=== PATIENT | female | born 1985 | race Caucasian/White ===

== ENCOUNTER 2017-11-15 11:07 | Emergency (ER) | payer OTHER ==
[~2017-11-15] VITALS: Ht 149.9 cm; Wt 62.9 kg
[2017-11-15 11:21] VITALS: TEMP 36.7; Ht 149.9 cm; Wt 62.9 kg
[2017-11-15 12:33] LABS: BASO % 1.1 %; BASO ABS # 0.06 K/uL (0-0.2); EOS % 2.1 %; EOS ABS # 0.11 K/uL (0-0.5); HEMATOCRIT 27.6 % (37-47); HEMOGLOBIN 9.4 g/dL (12.0-16.0); IG# 0.01 K/uL (0.00-0.02); LYMPH % 26.5 %; MEAN CELL VOLUME 99.6 fL (80-100); MEAN CORPUSCULAR HEMOGLOBIN 33.9 pg (25-34); MEAN CORPUSCULAR HGB CONC 34.1 g/dl (32-36); MONO % 17.6 %; MONO ABS # 0.93 K/uL (0.11-0.59); NEUT % 52.5 %; NEUT ABS # 2.78 K/uL (1.4-6.5); NUCLEATED RED BLOOD CELL ABS 0.03 K/uL (0-0); PLATELET COUNT 101 K/uL (130-400); RED CELL DISTRIBUTION WIDTH CV 17.5 % (11.5-14.5); RED CELL DISTRIBUTION WIDTH SD 64.1 fL (36.4-46.3); WHITE BLOOD COUNT 5.29 K/uL (4.8-10.8)
[2017-11-15 12:38] VITALS: O2SAT 94
[2017-11-15 12:44] LABS: INR 1.3 (0.9-1.1); PTT PATIENT 32.4 SECONDS (21.0-31.0)
[2017-11-15 13:02] LABS: ALBUMIN 2.8 gm/dl (3.4-5.0); CALCIUM 7.8 mg/dl (8.5-10.1); CREATININE 1.41 mg/dl (0.60-1.20); POTASSIUM 3.7 mmol/L (3.5-5.1)
[2017-11-15 13:10] LABS: TOTAL PROTEIN 7.5 gm/dl (6.4-8.2)
[2017-11-15] MEDS ORDERED: CHOL1000 PO (13:10)
[2017-11-15] MEDS ORDERED: LISI2.5T5 PO (13:10)
[2017-11-15] MEDS ORDERED: PROP20TA67 PO (13:10)
[2017-11-15] MEDS ORDERED: MULT-506 PO (13:10)
[2017-11-15] MEDS ORDERED: PANT40TA PO (13:10)
[2017-11-15] MEDS ORDERED: LRS10 PO (13:10)
[2017-11-15] MEDS ORDERED: THIA100T11 PO (13:11)
[2017-11-15] MEDS ORDERED: HYDROCORTISONE SOD SUCCINATE 100 MG/2 ML VIAL IV STA (14:30)
--- NOTE | 2017-11-15 15:02 | EMERGENCY ROOM VISIT NOTE ---
History First contact with patient: 11:49 Chief Complaint: ILLNESS Stated Complaint: JAUNDICE History of Present Illness The patient is a 32 year old female who presents to the Emergency Room via private vehicle accompanied by grandfather with complaints of "jaundice". The patient states that she has a history of cirrhosis of the liver, and went to her drug and alcohol group and they informed her that she should be seen because of her increasing jaundice. She states that she has been seen earlier in the week at [facility]. She states that her abdomen continues to be distended. She notes that she does follow in [place] with a property condition assessor but is unsure of their name. She notes that she continues to drink alcohol and last consumed alcohol today. Review of Systems A complete 10-point Review of Systems was discussed with the patient, with pertinent positives and negatives listed in the History of Present Illness. All remaining Review of Systems questions can be considered negative unless otherwise specified. Past Medical/Surgical History Cirrhosis of Liver Social History Smoking Status: Never Smoker Current/Historical Medications Scheduled Baclofen (Baclofen), 10 MG PO TID Cholecalciferol (Vitamin D3), 5,000 UNITS PO DAILY Lisinopril (Lisinopril), 2.5 MG PO DAILY Multivitamin (Multivitamin), 1 TAB PO DAILY Pantoprazole (Protonix), 40 MG PO DAILY Propranolol (Inderal), 20 MG PO BID Thiamine Hcl (Vitamin B-1), 100 MG PO BID Physical Exam Vital Signs Date Time Temp Pulse Resp B/P (MAP) Pulse Ox O2 Delivery O2 Flow Rate FiO2 11/15/17 19:40 65 17 96/58 97 11/15/17 18:47 69 18 95/53 95 11/15/17 17:01 76 16 95/63 97 Room Air 11/15/17 15:17 73 18 100/63 96 Room Air 11/15/17 13:46 76 16 92/55 94 Room Air 11/15/17 12:56 83 11/15/17 12:38 94 Room Air 11/15/17 12:38 74 16 87/47 94 Room Air 11/15/17 11:21 36.7 62 18 98/56 93 Room Air Physical Exam VITAL SIGNS - Vital signs and nursing notes were reviewed. Stable. GENERAL - 32-year-old female appearing her stated age who is in no acute distress. Communicates well with provider and answers questions appropriately. SKIN - Without rashes. Yellowing noted throughout. HEAD - NC/AT. EYES - Sclera icteric. EARS - No deformities of external structures noted on gross examination bilaterally. NOSE - Midline and without cyanosis. No epistaxis or purulent drainage noted. MOUTH/OROPHARYNX - Without perioral cyanosis. NECK - Neck with FROM. LUNGS - Chest wall symmetric without accessory muscle use, intercostals retractions, or central cyanosis. Normal vesicular breath sounds CTA B/L. No wheezes, rales, or rhonchi appreciated. CARDIAC - RRR with S1/S2. No murmur, rubs, or gallops appreciated. ABDOMEN - Abdominal contour distended without pulsations or visible masses. Ascites suspected. EXTREMITIES - No clubbing or peripheral cyanosis. No pretibial edema present. NEUROLOGIC - Cranial nerves II through XII grossly intact. PSYCH - A&O, and cooperates fully with examiner. Pt is very pleasant and interacts well with examiner. Medical Decision & Procedures Laboratory Results 11/15/17 12:18 Red Blood Count 2.77, Mean Corpuscular Volume 99.6, Mean Corpuscular Hemoglobin 33.9, Mean Corpuscular Hemoglobin Concent 34.1, Mean Platelet Volume 11.0, Neutrophils (%) (Auto) 52.5, Lymphocytes (%) (Auto) 26.5, Monocytes (%) (Auto) 17.6, Eosinophils (%) (Auto) 2.1, Basophils (%) (Auto) 1.1, Neutrophils # (Auto ) 2.78, Lymphocytes # (Auto) 1.40, Monocytes # (Auto) 0.93, Eosinophils # (Auto ) 0.11, Basophils # (Auto) 0.06 11/15/17 12:18 Test 11/15/17 11:40 11/15/17 12:18 11/15/17 12:26 Urine Color DK YELLOW Urine Appearance CLEAR (CLEAR) Urine pH 7.5 (4.5-7.5) Urine Specific [place] 1.005 (1.000-1.030) Urine Protein NEG (NEG) Urine Glucose (UA) NEG (NEG) Urine Ketones NEG (NEG) Urine Occult Blood NEG (NEG) Urine Nitrite NEG (NEG) Urine Bilirubin 1+ (NEG) Urine Urobilinogen NEG (NEG) Urine Leukocyte Esterase NEG (NEG) Urine Test NEG (NEG) White Blood Count 5.29 K/uL (4.8-10.8) Red Blood Count 2.77 M/uL (4.2-5.4) Hemoglobin 9.4 g/dL (12.0-16.0) Hematocrit 27.6 % (37-47) Mean Corpuscular Volume 99.6 fL (80-100) Mean Corpuscular Hemoglobin 33.9 pg (25-34) Mean Corpuscular Hemoglobin Concent 34.1 g/dl (32-36) Platelet Count 101 K/uL (130-400) Mean Platelet Volume 11.0 fL (7.4-10.4) Neutrophils (%) (Auto) 52.5 % Lymphocytes (%) (Auto) 26.5 % Monocytes (%) (Auto) 17.6 % Eosinophils (%) (Auto) 2.1 % Basophils (%) (Auto) 1.1 % Neutrophils # (Auto) 2.78 K/uL (1.4-6.5) Lymphocytes # (Auto) 1.40 K/uL (1.2-3.4) Monocytes # (Auto) 0.93 K/uL (0.11-0.59) Eosinophils # (Auto) 0.11 K/uL (0-0.5) Basophils # (Auto) 0.06 K/uL (0-0.2) RDW Standard Deviation 64.1 fL (36.4-46.3) RDW Coefficient of Variation 17.5 % (11.5-14.5) Immature Granulocyte % (Auto) 0.2 % Immature Granulocyte # (Auto) 0.01 K/uL (0.00-0.02) Nucleated RBC Absolute Count (auto) 0.03 K/uL (0-0) Nucleated Red Blood Cells % 0.5 % Prothrombin Time 13.5 SECONDS (9.0-12.0) Prothromb Time International Ratio 1.3 (0.9-1.1) Activated Partial Thromboplast Time 32.4 SECONDS (21.0-31.0) Partial Thromboplastin Ratio 1.2 Venous Blood pH 7.38 (7.36-7.41) Venous Blood Partial Pressure CO2 45 mmHg (38.0-50.0) Venous Blood Partial Pressure O2 25 mmHg Venous Blood HCO3 26 mmol/L Venous Blood Oxygen Saturation < 60.0 % Venous Blood Base Excess 0.6 mEq/L Anion Gap 8.0 mmol/L (3-11) Est Creatinine Clear Calc Drug Dose 45.8 ml/min Estimated GFR () 56.6 Estimated GFR (Non- 48.8 BUN/Creatinine Ratio 12.4 (10-20) Calcium Level 7.8 mg/dl (8.5-10.1) Magnesium Level 2.5 mg/dl (1.8-2.4) Total Bilirubin 10.2 mg/dl (0.2-1) Direct Bilirubin 8.3 mg/dl (0-0.2) Aspartate Amino Transf (AST/SGOT) 134 U/L (15-37) Alanine Aminotransferase (ALT/SGPT) 28 U/L (12-78) Alkaline Phosphatase 234 U/L (45-117) Ammonia < 10.0 umol/L (11-32) Total Protein 7.5 gm/dl (6.4-8.2) Albumin 2.8 gm/dl (3.4-5.0) Thyroid Stimulating Hormone (TSH) 3.730 uIu/ml (0.300-4.500) Ethyl Alcohol mg/dL 298.0 mg/dl (0-3) Bedside Lactic Acid Venous 1.24 mmol/L (0.90-1.70) Medications Administered Medications (Trade) Dose Ordered Sig/Jesús Route Start Time Stop Time Status Last Admin Dose Admin Hydrocortisone Sodium Succinate (Solu-Cortef IV) 100 mg NOW STAT IV 11/15/17 14:30 11/15/17 14:32 DC 11/15/17 15:17 100 MG Lorazepam (Ativan Tab) 1 mg NOW STAT SL 11/15/17 16:56 11/15/17 16:57 DC 11/15/17 17:01 1 MG Medical Decision Patient was seen and evaluated as above. She presents to us today with jaundice and abdominal distention. She has a history of liver cirrhosis. She continues to drink alcohol. After obtaining a thorough history and physical examination the above work up was performed. Patient is found to be hypotensive , but is asymptomatic with such. Alcohol was found to be elevated near 300. There is no leukocytosis. Hemoglobin low at 9.4. VBG normal. Coags reveal INR 1.3. Patient metabolic panel sodium 132, creatinine high at 1.41, calcium low 7.8, magnesium high at 2.5, total bilirubin 10.2 and direct at 8.3. Alkaline phosphatase of 234. Urine normal. Alcohol, 298. Case was discussed with the attending physician, and subsequent the hospitalist for potential admission. He recommended 100 mg of hydrocortisone IV, and potential transfer to tertiary care. I then placed a phone call to [facility] hepatology. I spoke with Dr. Umanzor and Hospitalist, Dr. Fatima. They accepted the patient for transfer. She appears stable for ground transfer. She will go via ambulance. Vital signs stable. I feel that she is better suited at a facility that offers liver care. I did relay to the patient that this is not a transfer for her to receive a liver transplant at this time, rather it is to receive further care for her ailment. She did receive ativan 1mg SL for her legs beginning to be restless that may be from alcohol withdrawal however she was reevaluated and found to be resting comfortable. She was given fentanyl for pain. She was transfered via ambulance to [facility]. Case was discussed with the attending physician I attest that I have personally reviewed the patient medication list. The patient's blood pressure was reviewed and was found to be low In the evaluation and treatment of this patient the following differential diagnoses were entertained: Liver failure, alcoholism, acute abdomen, ascites, among others. Impression Primary Impression: Liver failure Additional Impression: Anemia Departure Information Referrals Preet Estes D.O. (PCP) Patient Instructions My [facility] Problem Qualifiers
[2017-11-15] MEDS ORDERED: FENTANYL CITRATE INJ 50 MCG/1 ML 2 ML VIAL IV STA (15:12)
[2017-11-15] MEDS ORDERED: LORAZEPAM 1 MG TAB SL STA (16:56)
[2017-11-15 19:40] VITALS: BP 96/58; PULSE 65; O2SAT 97
== END 2017-11-15 19:40 | disposition short-term general hospital (02) ==
LOC: C.EDB 11:09 → C.EDC 19:40
DX: K72.90 Hepatic failure, unspecified without coma (principal); D64.9 Anemia, unspecified; K74.60 Unspecified cirrhosis of liver; F10.20 Alcohol dependence, uncomplicated; Y90.8 Blood alcohol level of 240 mg/100 ml or more; I95.9 Hypotension, unspecified

== ENCOUNTER 2018-01-09 00:30 | Inpatient (IN) | payer OTHER ==
[~2018-01-09] VITALS: Ht 149.9 cm; Wt 63.4 kg
[~2018-01-09 00:30] MED LIST: CHOL1000 PO; FOLI1TAB8 PO; LISI-1116 PO; LRS10 PO; MULT-506 PO; PANT40TA PO; PROP20TA67 PO; THIA100T11 PO
[2018-01-09] MEDS ORDERED: OXYCODONE HCL IR 5 MG TAB (IMMEDIATE RELEASE) PO STA (00:39)
--- NOTE | 2018-01-09 00:42 | EMERGENCY ROOM VISIT NOTE ---
History Report prepared by Hari: Callie Rodriguez Under the Supervision of: Dr. Kelton Lynn M.D. First contact with patient: 00:31 Chief Complaint: ABDOMINAL PAIN Stated Complaint: ABDOMINAL PAIN History of Present Illness The patient is a 32 year old female who presents to the Emergency Room with complaints of persistent abdominal pain since she was discharged on January 02, 2018. The patient was recently transferred from [facility] for liver failure to [place] November 15, 2017. The patient has a history of alcoholism. She notes that while she was in the hospital she had a TIPS procedure. She state that her abdomen has been swelling and is in pain. She notes the pain is radiating to her back. She denies any fever, though notes chills. She notes mild shortness of breath associated with chest pain. She denies taking any pain medication. She denies any recent alcohol consumption. She denies any diarrhea, though notes constipation. She notes her liver enzymes have been relatively better than normal. She denies any history of kidney failure. She notes that she was on Dilaudid and Oxycodone while in the hospital. She notes that she was given the medication every day. Source of History: patient Onset: January 02, 2018 Position: abdomen Quality: other (swelling) Timing: other (persistent) Associated Symptoms: + chills, + chest pain, + SOB, + back pain, No fevers, No diarrhea Note: She notes constipation. Review of Systems See HPI for pertinent positives & negatives. A total of 10 systems reviewed and were otherwise negative. Past Medical & Surgical Medical Problems: (1) Abdominal pain (2) Alcoholism (3) Liver cirrhosis (4) paracentesis (5) Restless leg syndrome Surgical Problems: (1) S/P TIPS (transjugular intrahepatic portosystemic shunt) Family History Diabetes mellitus FHx: cancer FHx: heart disease Hypertension Kidney disease Kidney stones Social History Smoking Status: Never Smoker Smokeless Tobacco Use: No Alcohol Use: heavy Marital Status: single Housing Status: lives with family Occupation Status: unemployed Current/Historical Medications Scheduled Folic Acid (Folvite), 1 MG PO DAILY Furosemide (Lasix), 20 MG PO DAILY Lactulose (Chronulac), 20 GM PO QID Melatonin (Melatonin), 3 MG PO HS Multivitamin (Multivitamin), 1 TAB PO DAILY Pantoprazole (Protonix), 40 MG PO DAILY Spironolactone (Aldactone), 50 MG PO DAILY Sulfa/Trimethoprim (Bactrim Ds 800MG/160MG), 1 TAB PO DAILY Thiamine Hcl (Vitamin B-1), 100 MG PO DAILY Scheduled PRN Saline (Saline Nasal [place]), 2 SPRY RICHARD UD PRN for congestion Allergies Coded Allergies: No Known Allergies (Unverified , 11/15/17) Physical Exam Vital Signs Date Time Temp Pulse Resp B/P (MAP) Pulse Ox O2 Delivery O2 Flow Rate FiO2 01/09/18 03:25 82 16 118/62 95 Room Air 01/09/18 02:33 86 18 116/76 95 Room Air 01/09/18 01:21 91 20 110/63 97 Room Air 01/09/18 00:38 101 01/09/18 00:35 37.0 92 16 114/77 98 Room Air Physical Exam GENERAL: Patient is chronically unwell-appearing and in minimal acute distress. EYES: No scleral icterus, unremarkable pupils. ENT: Mucous membranes moist, no nasal congestion. NECK: No masses appreciated, no meningismus, trachea is midline. RESPIRATORY: No dyspnea. Clear to auscultation and equal bilaterally. No wheeze , no rhonchi. CARDIOVASCULAR: Regular rate and rhythm. No murmurs, rubs, gallops appreciated. GASTROINTESTINAL: Abdomen is mildly diffuse with tenderness to palpation, worse over epigastrium, no peritonitis. Bowel sounds positive. No masses appreciated. Mildly distended abdomen with fluid wave BACK: No midline tenderness, no CVA tenderness EXTREMITIES: Normal motion all extremities, no cyanosis, no edema. NEUROLOGIC: Alert and oriented, no acute motor or sensory deficits, no focal weakness, cranial nerves grossly intact. SKIN: No rash, no diaphoresis. Jaundice. Extensive bruising from venous access sites Medical Decision & Procedures ER Provider Diagnostic Interpretation: Radiology results and stated below per my review and interpretation: CHEST XR: Single view: Left pleural effusion, Normal cardiac order. No infiltrate. No pneumothorax. Laboratory Results 01/09/18 00:45 Red Blood Count 3.05, Mean Corpuscular Volume 95.1, Mean Corpuscular Hemoglobin 32.5, Mean Corpuscular Hemoglobin Concent 34.1, Mean Platelet Volume 9.7, Neutrophils (%) (Auto) 61.6, Lymphocytes (%) (Auto) 22.9, Monocytes (%) (Auto) 12.3, Eosinophils (%) (Auto) 1.5, Basophils (%) (Auto) 1.5, Neutrophils # (Auto ) 2.97, Lymphocytes # (Auto) 1.10, Monocytes # (Auto) 0.59, Eosinophils # (Auto ) 0.07, Basophils # (Auto) 0.07 01/09/18 00:45 Test 01/09/18 00:00 01/09/18 00:45 01/09/18 01:06 Urine Color DK YELLOW Urine Appearance CLEAR (CLEAR) Urine pH 7.0 (4.5-7.5) Urine Specific [place] 1.022 (1.000-1.030) Urine Protein NEG (NEG) Urine Glucose (UA) NEG (NEG) Urine Ketones NEG (NEG) Urine Occult Blood NEG (NEG) Urine Nitrite NEG (NEG) Urine Bilirubin 2+ (NEG) Urine Urobilinogen POS (NEG) Urine Leukocyte Esterase NEG (NEG) Urine WBC (Auto) 1-5 /hpf (0-5) Urine RBC (Auto) 0-4 /hpf (0-4) Urine Hyaline Casts (Auto) 1-5 /lpf (0-5) Urine Epithelial Cells (Auto) 10-20 /lpf (0-5) Urine Bacteria (Auto) NEG (NEG) White Blood Count 4.81 K/uL (4.8-10.8) Red Blood Count 3.05 M/uL (4.2-5.4) Hemoglobin 9.9 g/dL (12.0-16.0) Hematocrit 29.0 % (37-47) Mean Corpuscular Volume 95.1 fL (80-100) Mean Corpuscular Hemoglobin 32.5 pg (25-34) Mean Corpuscular Hemoglobin Concent 34.1 g/dl (32-36) Platelet Count 122 K/uL (130-400) Mean Platelet Volume 9.7 fL (7.4-10.4) Neutrophils (%) (Auto) 61.6 % Lymphocytes (%) (Auto) 22.9 % Monocytes (%) (Auto) 12.3 % Eosinophils (%) (Auto) 1.5 % Basophils (%) (Auto) 1.5 % Neutrophils # (Auto) 2.97 K/uL (1.4-6.5) Lymphocytes # (Auto) 1.10 K/uL (1.2-3.4) Monocytes # (Auto) 0.59 K/uL (0.11-0.59) Eosinophils # (Auto) 0.07 K/uL (0-0.5) Basophils # (Auto) 0.07 K/uL (0-0.2) RDW Standard Deviation 77.7 fL (36.4-46.3) RDW Coefficient of Variation 22.6 % (11.5-14.5) Immature Granulocyte % (Auto) 0.2 % Immature Granulocyte # (Auto) 0.01 K/uL (0.00-0.02) Tear Drop Cells 1+ Ovalocytes 1+ Echinocytes 2+ Prothrombin Time 15.2 SECONDS (9.0-12.0) Prothromb Time International Ratio 1.5 (0.9-1.1) Activated Partial Thromboplast Time 35.0 SECONDS (21.0-31.0) Partial Thromboplastin Ratio 1.3 Anion Gap 7.0 mmol/L (3-11) Est Creatinine Clear Calc Drug Dose 87.8 ml/min Estimated GFR () 123.4 Estimated GFR (Non- 106.4 BUN/Creatinine Ratio 15.3 (10-20) Calcium Level 7.9 mg/dl (8.5-10.1) Total Bilirubin 6.3 mg/dl (0.2-1) Direct Bilirubin 4.6 mg/dl (0-0.2) Aspartate Amino Transf (AST/SGOT) 117 U/L (15-37) Alanine Aminotransferase (ALT/SGPT) 24 U/L (12-78) Alkaline Phosphatase 159 U/L (45-117) Troponin I < 0.015 ng/ml (0-0.045) Total Protein 7.0 gm/dl (6.4-8.2) Albumin 3.3 gm/dl (3.4-5.0) Lipase 2413 U/L (73-393) Ethyl Alcohol mg/dL 136.0 mg/dl (0-3) Laboratory results as reviewed by me. Medications Administered Medications (Trade) Dose Ordered Sig/Jesús Route Start Time Stop Time Status Last Admin Dose Admin Oxycodone HCl (Roxicodone Immediate Rel Tab) 5 mg NOW STAT PO 01/09/18 00:39 01/09/18 00:42 DC 01/09/18 00:47 5 MG Ondansetron HCl (Zofran Inj) 4 mg NOW STAT IV 01/09/18 02:06 01/09/18 02:07 DC 01/09/18 02:27 4 MG Fentanyl Citrate (Fentanyl Inj) 75 mcg NOW STAT IV 01/09/18 02:06 01/09/18 02:07 DC 01/09/18 02:27 75 MCG Sodium Chloride 1,000 ml @ 75 mls/hr [id number] STAT IV 01/09/18 02:06 01/09/18 03:52 DC 01/09/18 02:06 75 MLS/HR Dextrose (Dextrose 50% 50ML Syringe) 25 ml NOW STAT IV 01/09/18 02:17 01/09/18 02:18 DC 01/09/18 02:17 25 ML Ondansetron HCl (Zofran Inj) 4 mg Q6H PRN IV 01/09/18 03:45 02/08/18 03:44 01/09/18 05:33 4 MG Hydromorphone HCl (Dilaudid Inj) 0.5 mg Q3HWA PRN IV 01/09/18 03:45 01/23/18 03:44 01/09/18 05:33 0.5 MG ECG Per My Interpretation Indication: abdominal pain Rate (beats per minute): 92 Rhythm: normal sinus Findings: no acute ischemic change, no ectopy, other (QTC of 464.) ED Course 0033: The patient was evaluated in room B6. A complete history and physical exam was performed. 0050: I reassessed the patient at this time. Dr. Melchor is the patient's radiologist physician. I went through the paperwork she came with. Her discharge paperwork indicates that she went through three rounds of IV Dilaudid and two rounds PO Oxy IR. 0200: I reassessed the patient at this time. She is adamant that she has not consumed alcohol. She states she may have consumed alcohol, though she cannot remember. She notes that she was up last night with friends eating pizza. 0213: I spoke with Dr. Peraza, [facility] radiologist physician. We discussed the patient' s case. He knows the patient well. He notes the patient is a pathological liar and one of the worse drunks he has ever come in contact with. He states that she becomes irate and belligerent easily. Her bilirubin seems okay at the moment. Her hemoglobin was running in the 9s. He recommends further evaluation. She does not need emergent transfer to their facility. 0250: I spoke with Dr. Bernardo, [facility] hospitalist. We discussed the patient's case. The patient will be evaluated by the [facility] for further management. Medical Decision Differential: Sepsis, Infectious (UTI/Pneumonia/Meningitis/etc), Metabolic/ Electrolyte Abnormality, Cardiac, Dehydration, Anemia, Hepatic, Endocrine, Toxicologic, Neurologic, amongst other pathologies entertained. 32 yr old female arrives with epigastric pain radiating to back along with copious other complaints. She was just discharged from [facility] where she was admitted for the last 2 months secondary to liver failure due to alcoholism. She had variceal bleed followed by tips during that time. States that she was out with friends eating pizza last night, adamantly denies etoh and then slept until this afternoon. Developed abdominal pain this evening. Lipase elevated. Etoh positive. She is clearly lying about etoh use though continues to deny using alcohol. Symptoms consistent with alcoholic pancreatitis and she also is likely withdrawing from narcotics she was on heavily while at [facility]. She is somewhat manipulative and demanding at times. She was discussed with [facility] GI who know her well and feel NPO and fluids with admit here is reasonable rather than emergent transfer. No peritonitis and I do not feel that she requires CT at this time. After small dose narcotics she has no further cp complaints and HR in 80s thus I feel this is not due to PE. Medication Reconcilliation Current Medication List: was personally reviewed by me Blood Pressure Screening Patient's blood pressure: Normal blood pressure Consults Time Called: 020 Consulting Physician: Dr. Peraza, [facility] radiologist physician Returned Call: [address] Peraza, [facility] radiologist physician. We discussed the patient's case. He knows the patient well. He notes the patient is a pathological liar and one of the worse drunks he has ever come in contact with. He states that she becomes irate and belligerent easily. Her bilirubin seems okay at the moment. Her hemoglobin was running in the 9s. He recommends further evaluation. She does not need emergent transfer to their facility. Additional Consults: Time Called: 025 Consulted Physician: Dr. Bernardo [facility] hospitalist Additional Comments: I spoke with Dr. Bernardo [facility] hospitalist. We discussed the patient's case. The patient will be evaluated by the [facility] for further management. Impression Primary Impression: Alcoholic pancreatitis Additional Impressions: Alcoholism Liver failure Scribe Attestation The scribe's documentation has been prepared under my direction and personally reviewed by me in its entirety. I confirm that the note above accurately reflects all work, treatment, procedures, and medical decision making performed by me. Departure Information Dispostion Being Evaluated By Hospitalist Referrals Preet Estes D.O. (PCP) Patient Instructions My [facility] Problem Qualifiers
[2018-01-09 00:52] LABS: BASO % 1.5 %; BASO ABS # 0.07 K/uL (0-0.2); EOS % 1.5 %; EOS ABS # 0.07 K/uL (0-0.5); HEMOGLOBIN 9.9 g/dL (12.0-16.0); IG# 0.01 K/uL (0.00-0.02); LYMPH % 22.9 %; MEAN CELL VOLUME 95.1 fL (80-100); MEAN CORPUSCULAR HEMOGLOBIN 32.5 pg (25-34); MEAN CORPUSCULAR HGB CONC 34.1 g/dl (32-36); MEAN PLATELET VOLUME 9.7 fL (7.4-10.4); MONO % 12.3 %; MONO ABS # 0.59 K/uL (0.11-0.59); NEUT % 61.6 %; NEUT ABS # 2.97 K/uL (1.4-6.5); PLATELET COUNT 122 K/uL (130-400); RED CELL DISTRIBUTION WIDTH CV 22.6 % (11.5-14.5); RED CELL DISTRIBUTION WIDTH SD 77.7 fL (36.4-46.3); WHITE BLOOD COUNT 4.81 K/uL (4.8-10.8)
[2018-01-09 01:01] LABS: INR 1.5 (0.9-1.1)
[2018-01-09 01:23] LABS: ALBUMIN 3.3 gm/dl (3.4-5.0); ALKALINE PHOSPHATASE 159 U/L (45-117); ALT/SGPT 24 U/L (12-78); AST/SGOT 117 U/L (15-37); BLOOD UREA NITROGEN 11 mg/dl (7-18); CALCIUM 7.9 mg/dl (8.5-10.1); CARBON DIOXIDE 22 mmol/L (21-32); CREATININE 0.74 mg/dl (0.60-1.20); GLUCOSE 62 mg/dl (70-99); LIPASE 2413 U/L (73-393); POTASSIUM 3.7 mmol/L (3.5-5.1); SODIUM 138 mmol/L (136-145)
[2018-01-09] MEDS ORDERED: LACT10SO17 PO (02:01)
[2018-01-09] MEDS ORDERED: MELA1TAB49 PO (02:02)
[2018-01-09] MEDS ORDERED: FURO-85 PO (02:02)
[2018-01-09] MEDS ORDERED: SPIR25TA PO (02:03)
[2018-01-09] MEDS ORDERED: SALI-3 NAE (02:05)
[2018-01-09] MEDS ORDERED: SODIUM CHLORIDE 0.9% 1000ML 1,000 ML IV STA (02:06)
[2018-01-09] MEDS ORDERED: SULF800T23 PO (02:06)
[2018-01-09] MEDS ORDERED: ONDANSETRON INJ 2 MG/ML 2 ML VIAL IV STA (02:06)
[2018-01-09] MEDS ORDERED: FENTANYL CITRATE INJ 50 MCG/1 ML 2 ML VIAL IV STA (02:06)
[2018-01-09] MEDS ORDERED: DEXTROSE 50% 50 ML SYR IV STA (02:17)
[2018-01-09] MEDS ORDERED: POLYETHYLENE (MIRALAX) 17 GM PACK PO PRN (03:45)
[2018-01-09] MEDS ORDERED: ALUMINUM/MAGNESIUM/SIMETH (MAALOX MAX) 30 ML UDC PO PRN (03:45)
[2018-01-09] MEDS ORDERED: ONDANSETRON INJ 2 MG/ML 2 ML VIAL IV PRN (03:45)
[2018-01-09] MEDS ORDERED: SODIUM CHLORIDE 0.65% NA SOLN 45 ML (OCEAN) NAE PRN (03:45)
[2018-01-09] MEDS ORDERED: MAGNESIUM HYDROXIDE SUSP 30 ML UDC PO PRN (03:45)
--- NOTE | 2018-01-09 03:52 | History and Physical ---
History & Physical Date & Time of Service: Jan 09, 2018 at 03:47 Chief Complaint: Abdominal Pain Primary Care Physician: Preet Estes D.O. History of Present Illness Source: patient Shilpa is a 32 year old female with Alcoholism, and Cirrhosis s/p TIPS procedure that presented to [facility] due to worsening abdominal pain Her pain started 2 days ago. It is located throughout her abdomen and it radiates to her back. She describes it as a diffuse dull ache. She has tried heating pads and ice packs but these have not helped with the pain. She rates the pain as a 7/10 in severity. Associated symptoms include chills, abdominal swelling, jaundice, nausea, fatigue and mild shortness of breath She was discharged from [facility] last week after being admitted for bleeding esophageal varices. She received numerous blood transfusions, she had band ligation of her esophageal varices and she had a TIPS procedure done. She was in the hospital for two weeks including a stay in the ICU. 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 In the ED the patients vitals were stable. Her labs were significant for a Hgb of 9.9, plt of 122, INR of 1.5, Bili of 6.3, AST of 117, Alk phos of 159 and Lipase of 2413. She also had a blood alcohol level of 136. She received fentanyl, roxicodone, IV NS, and zofran in the ED. She adamantly denies any alcohol use since being discharged from [facility] despite having a positive blood alcohol level. She has a history of opioid drug abuse. She denies any recent drug use Past Medical/Surgical History Medical Problems: (1) Abdominal pain (2) Alcoholism (3) Anemia (4) Liver cirrhosis (5) Liver failure (6) paracentesis (7) Restless leg syndrome Surgical Problems: (1) S/P TIPS (transjugular intrahepatic portosystemic shunt) Family History Diabetes mellitus FHx: cancer FHx: heart disease Hypertension Kidney disease Kidney stones Social History Smoking Status: Never Smoker Smokeless Tobacco Use: No Marital Status: single Occupational Status: unemployed Allergies Coded Allergies: No Known Allergies (Unverified , 11/15/17) Home Medications Scheduled Folic Acid (Folvite), 1 MG PO DAILY Furosemide (Lasix), 20 MG PO DAILY Lactulose (Chronulac), 20 GM PO QID Melatonin (Melatonin), 3 MG PO HS Multivitamin (Multivitamin), 1 TAB PO DAILY Pantoprazole (Protonix), 40 MG PO DAILY Spironolactone (Aldactone), 50 MG PO DAILY Sulfa/Trimethoprim (Bactrim Ds 800MG/160MG), 1 TAB PO DAILY Thiamine Hcl (Vitamin B-1), 100 MG PO DAILY Scheduled PRN Saline (Saline Nasal [place]), 2 SPRY RICHARD UD PRN for congestion Review of Systems Constitutional: + chills, + weakness, + fatigue, No fever, No weight loss ENT: + sore throat, No hearing loss, No unusual epistaxis, No nasal symptoms, No trouble swallowing Respiratory: + shortness of breath, + dyspnea on exertion, No cough, No sputum , No wheezing, No dyspnea at rest Cardiovascular: + chest pain, No edema, No palpitations Abdomen: + pain, + nausea, No vomiting, No diarrhea, No constipation, No GI bleeding Musculoskeletal: + joint pain, + muscle pain, No calf pain Genitourinary - Female: No dysuria, No urinary frequency, No urinary urgency, No urinary incontinence Hematologic / Lymphatic: No abnormal bleeding/bruising, No clotting problems Integumentary: + color change, No rash, No itch, No bleeding Physical Exam Vital Signs Date Time Temp Pulse Resp B/P (MAP) Pulse Ox O2 Delivery O2 Flow Rate FiO2 01/09/18 02:33 86 18 116/76 95 Room Air 01/09/18 01:21 91 20 110/63 97 Room Air 01/09/18 00:38 101 01/09/18 00:35 37.0 92 16 114/77 98 Room Air General Appearance: + mild distress Head: normocephalic, atraumatic Eyes: PERRL, EOMI, + abnormal sclerae exam (jaundiced) ENT: hearing grossly normal, pharynx normal Neck: supple, no JVD, no carotid bruits, + pertinent finding (bruising of left neck where central lines was placed) Respiratory/Chest: chest non-tender, no respiratory distress, no accessory muscle use, + crackles (mild crackles at the base) Cardiovascular: regular rate, rhythm, no edema, normal peripheral pulses, + systolic murmur (3/6 systolic murmur throughout) Abdomen/GI: + tenderness (diffuse), + distended, + pertinent finding (no rebound or guarding, patient with ascites) Extremities/Musculoskelatal: normal inspection, no calf tenderness, no pedal edema, non-tender, + pertinent finding (resting tremor) Neurologic/Psych: alert, normal mood/affect, oriented x 3 Skin: + jaundice Diagnostics Laboratory Results Results Past 24 Hours Test 01/09/18 00:00 01/09/18 00:45 01/09/18 01:06 Range/Units Urine Color DK YELLOW Urine Appearance CLEAR CLEAR Urine pH 7.0 4.5-7.5 Urine Specific [place] 1.022 1.000-1.030 Urine Protein NEG NEG Urine Glucose (UA) NEG NEG Urine Ketones NEG NEG Urine Occult Blood NEG NEG Urine Nitrite NEG NEG Urine Bilirubin 2+ NEG Urine Urobilinogen POS NEG Urine Leukocyte Esterase NEG NEG Urine WBC (Auto) 1-5 0-5 /hpf Urine RBC (Auto) 0-4 0-4 /hpf Urine Hyaline Casts (Auto) 1-5 0-5 /lpf Urine Epithelial Cells (Auto) 10-20 0-5 /lpf Urine Bacteria (Auto) NEG NEG White Blood Count 4.81 4.8-10.8 K/uL Red Blood Count 3.05 4.2-5.4 M/uL Hemoglobin 9.9 12.0-16.0 g/dL Hematocrit 29.0 37-47 % Mean Corpuscular Volume 95.1 80-100 fL Mean Corpuscular Hemoglobin 32.5 25-34 pg Mean Corpuscular Hemoglobin Concent 34.1 32-36 g/dl Platelet Count 122 130-400 K/uL Mean Platelet Volume 9.7 7.4-10.4 fL Neutrophils (%) (Auto) 61.6 % Lymphocytes (%) (Auto) 22.9 % Monocytes (%) (Auto) 12.3 % Eosinophils (%) (Auto) 1.5 % Basophils (%) (Auto) 1.5 % Neutrophils # (Auto) 2.97 1.4-6.5 K/uL Lymphocytes # (Auto) 1.10 1.2-3.4 K/uL Monocytes # (Auto) 0.59 0.11-0.59 K/uL Eosinophils # (Auto) 0.07 0-0.5 K/uL Basophils # (Auto) 0.07 0-0.2 K/uL RDW Standard Deviation 77.7 36.4-46.3 fL RDW Coefficient of Variation 22.6 11.5-14.5 % Immature Granulocyte % (Auto) 0.2 % Immature Granulocyte # (Auto) 0.01 0.00-0.02 K/uL Tear Drop Cells 1+ Ovalocytes 1+ Echinocytes 2+ Prothrombin Time 15.2 9.0-12.0 SECONDS Prothromb Time International Ratio 1.5 0.9-1.1 Activated Partial Thromboplast Time 35.0 21.0-31.0 SECONDS Partial Thromboplastin Ratio 1.3 Sodium Level 138 136-145 mmol/L Potassium Level 3.7 3.5-5.1 mmol/L Chloride Level 109 98-107 mmol/L Carbon Dioxide Level 22 21-32 mmol/L Anion Gap 7.0 3-11 mmol/L Blood Urea Nitrogen 11 7-18 mg/dl Creatinine 0.74 0.60-1.20 mg/dl Est Creatinine Clear Calc Drug Dose 87.8 ml/min Estimated GFR () 123.4 Estimated GFR (Non- 106.4 BUN/Creatinine Ratio 15.3 10-20 Random Glucose 62 70-99 mg/dl Calcium Level 7.9 8.5-10.1 mg/dl Total Bilirubin 6.3 0.2-1 mg/dl Direct Bilirubin 4.6 0-0.2 mg/dl Aspartate Amino Transf (AST/SGOT) 117 15-37 U/L Alanine Aminotransferase (ALT/SGPT) 24 12-78 U/L Alkaline Phosphatase 159 45-117 U/L Troponin I < 0.015 0-0.045 ng/ml Total Protein 7.0 6.4-8.2 gm/dl Albumin 3.3 3.4-5.0 gm/dl Lipase 2413 73-393 U/L Ethyl Alcohol mg/dL 136.0 0-3 mg/dl Diagnostic Radiology CXR Single view: Left pleural effusion, Normal cardiac order. No infiltrate. No pneumothorax. Normal EKG Impression Assessment and Plan 32 year old female with a PMH of Alcoholism, and Cirrhosis w/ TIPS procedure presented with worsening abdominal pain and was diagnosed as having acute pancreatitis Acute pancreatitis secondary to alcohol intake - elevated lipase, continue to trend daily - NPO except meds - Lactated Ringers 150 mls/hr - Dilaudid 0.5mg q3hrs prn pain - Zofran PRN for nausea Cirrhosis w/ TIPS procedure - enlarged abdomen with ascites - therapeutic paracentesis in the AM - follows with GI at [facility] - Labs: elevated INR of 1.5, Platelets of 122, Bilirubin of 6.3, AST of 159 - continue folic acid, furosemide, lactulose, aldactone, Thiamine Anemia secondary to esophageal varices and cirrhosis - current hgb 9,9, reported as 9's when discharged from [facility] - continue to monitor Alcohol dependency - alcohol level of 136 - no CIWA protocol ordered due to recent prolonged hospital stay DVT - SCD - chemical anticoagulation contraindicated secondary to recent esophageal varices FULL CODE Resident Physician Supervision Note: I was present with Dr. Petersen during the history and exam. I discussed the case with the resident and agree with the findings and plan as documented in the note. Any exceptions or clarifications are listed here: 32 y/o F with ETOH cirrhosis - recent extended admission to [facility] due to variceal bleeding and encephalopathy. Had a TIPS procedure and was DCd 5 days prior. She was drinking alcohol over the past 2 days and then developed acute abdominal pain. Initial labs and exam are consistent with acute pancreatitis. Her ETOH level was 132. The liver service at [facility] were contacted prior to admission. OE Jaundiced young female in no distress S1,2 R CTAB Tender upper abdomen - no guarding No CCE AAO x 3 - no deficits P: IVF, NPO, pain control We will continue her diuretics related to cirrhosis as she will receive aggressive hydration Per [facility], the pt may abuse narcotics which should therefore be minimized - we do not have an alternative due to cirrhosis. The dangers of continued alcohol use have been made clear to this pt, although it is worth noting that she persistently denied ETOH intake despite her high blood alcohol level Documented By: Siddhartha Bernardo Resuscitation Status VTE Prophylaxis Will order VTE Prophylaxis: Yes Reason for no VTE drug order: Contraindicated
[2018-01-09 04:34] VITALS: O2SAT 96
[2018-01-09 04:49] VITALS: BP 109/72; PULSE 76; TEMP 37.5; Ht 149.9 cm; Wt 63.4 kg
[2018-01-09] MEDS ORDERED: LACTATED RINGER'S 1000ML 1,000 ML IV SCH (05:30)
[2018-01-09] MEDS: HYDROmorphone INJ 0.5 MG/0.5 ML SYR IV PRN ×2 (05:33→08:30)
--- NOTE | 2018-01-09 07:03 | DIAGNOSTIC IMAGING REPORT ---
CHEST ONE VIEW PORTABLE CLINICAL HISTORY: 32 years-old Female presenting with shortness of breath, recent TIPS procedure. TECHNIQUE: Portable upright AP view of the chest was obtained. COMPARISON: None. FINDINGS: Cardiomediastinal silhouette normal. Mildly low lung volumes with bibasilar bandlike opacities. No other focal infiltrate. No large effusion or pneumothorax. Osseous structures normal. A TIPS is in place. Ascites may be present evidenced by added density in the upper abdomen. IMPRESSION: 1. Mildly low lung volumes with bibasilar atelectasis. No pleural effusion or convincing evidence of acute cardiopulmonary disease. Electronically signed by: Ricky Rush M.D. 01/09/2018 7:01 AM Dictated Date/Time: 01/09/2018 6:49 AM
[2018-01-09 07:41] VITALS: BP 115/76; PULSE 74; TEMP 37.1; O2SAT 97
[2018-01-09] MEDS: LACTULOSE SYRUP 20 GM/30 ML UDC PO SCH ×3 (07:56→16:23)
[2018-01-09] MEDS ORDERED: MULTIVITAMIN TAB PO SCH (09:00)
[2018-01-09] MEDS ORDERED: PANTOprazole SOD 40 MG TAB PO SCH (09:00)
[2018-01-09] MEDS ORDERED: THIAMINE HCL 100 MG TAB PO SCH (09:00)
[2018-01-09] MEDS ORDERED: SPIRONOLACTONE 25 MG TAB PO SCH (09:00)
[2018-01-09] MEDS ORDERED: FUROSEMIDE 20 MG TAB PO SCH (09:00)
[2018-01-09] MEDS: ONDANSETRON INJ 2 MG/ML 2 ML VIAL IV PRN ×2 (10:05→16:11)
--- NOTE | 2018-01-09 10:45 | DIAGNOSTIC IMAGING REPORT ---
PARACENTESIS ABDOMEN W/IMAGING CLINICAL HISTORY: 32 years-old Female presenting with Ascites. COMPARISON: None. PROCEDURE: The procedure and its risks, benefits and alternatives were discussed with the patient, and written informed consent was obtained. A timeout was performed to confirm patient identity. Limited ultrasound of the abdomen was performed to determine a safe needle entry site. The right lower quadrant was prepped and draped in the usual aseptic fashion. 1% Lidocaine was used for local anesthesia. A paracentesis needle-sheath was inserted into the peritoneal space using ultrasound guidance. The needle was removed and the sheath was connected to tubing and a vacuum suction device. A total of 3.2 L of right lower ascites was aspirated. The sheath was removed, and a dressing applied. The patient tolerated the procedure well. No immediate complications. IMPRESSION: Ultrasound-guided therapeutic paracentesis with aspiration of 3.2 L of ascites. Electronically signed by: Ricky Rush M.D. 01/09/2018 10:43 AM Dictated Date/Time: 01/09/2018 10:43 AM
[2018-01-09] MEDS ORDERED: NURSING VERBAL MED ORDER ONE ×2 (12:00→12:30)
[2018-01-09] MEDS ORDERED: MoRPHine SULFATE 2 MG/ML CARP ONE (12:05)
[2018-01-09 12:06] VITALS: BP 120/73; PULSE 68; TEMP 37.2; O2SAT 97
[2018-01-09 12:38] LABS: ALBUMIN 3.6 gm/dl (3.4-5.0); CALCIUM 8.7 mg/dl (8.5-10.1); CREATININE 0.79 mg/dl (0.60-1.20); POTASSIUM 3.8 mmol/L (3.5-5.1); TOTAL PROTEIN 7.2 gm/dl (6.4-8.2)
--- NOTE | 2018-01-09 14:37 | Discharge Instructions ---
Discharge Instructions Date of Service Jan 09, 2018. Admission Reason for Admission: Abdominal Pain Discharge Discharge Diagnosis / Problem: Abdominal pain Discharge Goals Goal(s): Decrease discomfort, Improve disease control, Improve nutritional status, Learn about illness, Prevent Disease Progression Activity Recommendations Activity Limitations: per Instructions/Follow-up section . Instructions / Follow-Up Instructions / Follow-Up During this admission, you were evaluated for worsening of abdominal pain. You were found to have excessive ascites, or fluid, within your abdomen. This is related to your ongoing liver disease. We took as much of the fluid off of the abdomen as we were able. We ran some lab tests on the fluid and it was not found to be infectious. It was noted on your arrival to the ED that your blood alcohol level was elevated. We strongly urge you to abstain from alcohol considering the advanced nature of your liver disease. Continue to take all of your home medications that are prescribed to you. Continue with a clear liquid diet and advance to a low fat diet as you are able Please follow up with your [facility] GI physician as soon as possible as well as you primary care physician to discuss this visit to the hospital. If you feel you are not coping well with the stressors in your life, we urge you to contact your primary care physician who can provide resources and possibly medication to help with this. If your symptoms return or worsen, please contact your GI physician and/or present to [facility] ED. Current Hospital Diet Patient's current hospital diet: Clear Liquid Diet Discharge Diet Recommended Diet: Clear Liquid Diet, Low Fat Diet (advance from clear liquids to low fat diet as tolerated) Pending Studies Studies pending at discharge: yes List of pending studies: Culture of ascites fluid Medical Emergencies . Who to Call and When: Medical Emergencies: If at any time you feel your situation is an emergency, please call 911 immediately. . Non-Emergent Contact Non-Emergency issues call your: Primary Care Provider, Director Of Curriculum And Instruction . . "Provider Documentation" section prepared by Kaye Yeboah. .
--- NOTE | 2018-01-09 15:07 | DIAGNOSTIC IMAGING REPORT ---
DUPLEX PORTAL HEPATIC VEINS CLINICAL HISTORY: TIPS patency COMPARISON STUDY: No previous studies for comparison. FINDINGS: The TIPS is patent. Peak systolic velocity within the TIPS was slightly elevated at 217 cm/s. Direction of flow is appropriate the main and left portal veins were patent with appropriately directed flow. The middle, left and right hepatic veins were patent. Hepatic artery was patent. Please note that a dedicated liver ultrasound was not performed. The liver is cirrhotic. Perihepatic ascites is noted. IMPRESSION: Patent TIPS with appropriately directed flow. Slightly elevated velocities within the TIPS, ranging up to 217 cm/s (normal is up to 190 cm/s). Electronically signed by: Augusto Alegria M.D. 01/09/2018 3:06 PM Dictated Date/Time: 01/09/2018 3:00 PM
[2018-01-09 15:51] VITALS: BP 121/77; PULSE 72; TEMP 37.6; O2SAT 99
[2018-01-09] MEDS ORDERED: MoRPHine SULFATE 2 MG/ML CARP IV SCH (16:00)
[2018-01-09] MEDS ORDERED: MoRPHine SULFATE 2 MG/ML CARP IV PRN (16:00)
[2018-01-09 16:19] VITALS: BP 121/77; PULSE 72; TEMP 37.6; O2SAT 99
--- NOTE | 2018-01-09 16:30 | Discharge Summary ---
Discharge Summary Date of Service Jan 09, 2018. Discharge Summary Admission Date: Jan 09, 2018 at 03:46 Discharge Date: Jan 09, 2018 Discharge Disposition: Home Principal Diagnosis: Ascites Problems/Secondary Diagnoses: (1) Alcoholism Status: Chronic Acute pancreatitis secondary to alcohol intake Cirrhosis s/p TIPS procedure Anemia secondary to esophageal varices and cirrhosis Alcohol dependency Procedures: Therapeutic paracentesis Medication Reconciliation Continued Medications: Folic Acid (Folvite) 1 Mg Tab 1 MG PO DAILY for 30 Days, #30 TAB Furosemide (Lasix) 20 Mg Tab 20 MG PO DAILY, TAB Lactulose (Chronulac) 10 Gm/15 Ml Syrp 20 GM PO QID please titrate to 2-3 bowel movements per day Melatonin (Melatonin) 3 Mg Tab 3 MG PO HS Multivitamin (Multivitamin) Tab 1 TAB PO DAILY Pantoprazole (Protonix) 40 Mg Tab 40 MG PO DAILY Saline (Saline Nasal [place]) 0.65 % Spr 2 SPRY RICHARD UD PRN for congestion Spironolactone (Aldactone) 25 Mg Tab 50 MG PO DAILY, TAB Sulfa/Trimethoprim (Bactrim Ds 800MG/160MG) Tab 1 TAB PO DAILY, #6 TAB Thiamine Hcl (Vitamin B-1) 100 Mg Tab 100 MG PO DAILY Discharge Exam Review of Systems: Constitutional: + weakness Respiratory: No cough Abdomen: + pain, + nausea Hematologic / Lymphatic: + abnormal bleeding/bruising Integumentary: + color change Physical Exam: General Appearance: WD/WN Eyes: + abnormal sclerae exam (scleral icterus) ENT: hearing grossly normal Respiratory/Chest: lungs clear, normal breath sounds, no respiratory distress, no accessory muscle use Cardiovascular: regular rate, rhythm, no murmur Abdomen / GI: + tenderness (diffuse) Neurologic/Psychiatric: glove cutter II-XII nml as tested, no motor/sensory deficits , alert, oriented x 3 Skin: + jaundice Hospital Course 32 year old female with a PMH of Alcoholism, and Cirrhosis s/p TIPS procedure 2.5 weeks ago who presented with worsening abdominal pain x 2 days Ascites and acute abdominal pain - Therapeutic paracentesis performed: 3.2 L drawn off; normal studies on fluid; pending culture - elevated lipase, likely related to acute continued alcohol abuse (elevated JOHNNY on admission) - Tolerated clear liquid well here. Recommended clear liquid diet and advancing to low fat diet as tolerated - Close follow up with GI team at [facility] - Patient allowed pain relief q4 hours until discharge. H/O opioid abuse. Cirrhosis s/p TIPS procedure - enlarged abdomen with ascites, as above - Ultrasound performed and confirmed patency of TIPS - follows with GI at [facility] - Labs: elevated INR of 1.5, Platelets of 122, Bilirubin of 6.3, AST of 159 - continue folic acid, furosemide, lactulose, aldactone, Thiamine Anemia secondary to esophageal varices and cirrhosis - current hgb 9,9, reported as 9's when discharged from [facility] Alcohol dependency - alcohol level of 136 with adament refusal of alcohol use since recent discharge from [facility]. - encouraged abstaining from alcohol, resources offered Total Time Spent: Greater than 30 minutes This includes examination of the patient, discharge planning, medication reconciliation, and communication with other providers. Discharge Instructions Please refer to the electronic Patient Visit Report (Discharge Instructions) for additional information. Follow-Up Recommend close follow up with [facility] GI team. Recommend presenting to [facility] ED if symptoms worsen. Additional Copies To Preet Estes D.O. Resident Tracking Resident Involvement: Resident Care Provided Care Provided: Adult Hospital Medicine Reviewed: Pt Seen/Exam by Me History continuing to complain of having abdominal pain Constitutional: denies: fever Respiratory: negative: short of breath Cardiovascular: denies chest pain General Appearance: no apparent distress Respiratory: lungs clear, no respiratory distress Cardiovascular: regular rate, rhythm Gastrointestinal: normal bowel sounds, non tender, soft Neurologic/Psychiatric: alert, oriented x 3 Skin Characteristics: warm/dry Assessment/Plan Resident Physician Supervision Note: I independently interviewed and examined the patient and verified the reese history and physical, reviewed labs and image studies, discussed the case with the resident Dr. Yeboah and agree with the findings and care plan. Time spent in discharge 35 min
== END 2018-01-09 19:00 | disposition home or self-care (01) | DRG 432 ==
LOC: EDBD 00:30 → C.EDB 00:31 → C.2T 03:46 → ENRESERV 04:01
PROVIDERS: ADMIT Internal Medicine; ATTEND Internal Medicine
PROC: 0W9G3ZZ Drainage of Peritoneal Cavity, Percutaneous Approach (ICD-10-PCS; principal; 2018-01-09)
DX: K70.31 Alcoholic cirrhosis of liver with ascites (principal); K85.20 Alcohol induced acute pancreatitis without necrosis or infection; I85.10 Secondary esophageal varices without bleeding; D64.9 Anemia, unspecified; F10.20 Alcohol dependence, uncomplicated; Z79.899 Other long term (current) drug therapy

== ENCOUNTER 2018-02-05 21:14 | Emergency (ER) | payer OTHER ==
[~2018-02-05] VITALS: Ht 149.9 cm; Wt 58.0 kg
[~2018-02-05 21:14] MED LIST changes: -CHOL1000 PO; +FURO-85 PO; +LACT10SO17 PO; -LISI-1116 PO; -LRS10 PO; +MELA1TAB49 PO; -PROP20TA67 PO; +SALI-3 NAE; +SPIR25TA PO; +SULF800T23 PO
[2018-02-05 21:23] VITALS: Ht 149.9 cm; Wt 58.0 kg
[2018-02-05 21:36] VITALS: O2SAT 97
[2018-02-05] MEDS ORDERED: SODIUM CHLORIDE 0.9% 500ML 500 ML IV STA (21:46)
[2018-02-05] MEDS ORDERED: MoRPHine SULFATE 4 MG/ML 1 ML CARP\\VIAL IV STA (21:46)
[2018-02-05] MEDS ORDERED: ONDANSETRON INJ 2 MG/ML 2 ML VIAL IV STA (21:46)
--- NOTE | 2018-02-05 21:56 | DIAGNOSTIC IMAGING REPORT ---
CHEST ONE VIEW PORTABLE CLINICAL HISTORY: 32 years-old Female presenting with weak. TECHNIQUE: Portable upright AP view of the chest was obtained. COMPARISON: 01/09/2018. FINDINGS: Cardiomediastinal silhouette normal. Mild pulmonary vascular prominence. No focal opacity. No large effusion or pneumothorax. Osseous structures normal. Cholecystectomy clips noted. A TIPS is in place. IMPRESSION: 1. Questionable volume overload. Otherwise no acute cardiopulmonary disease. Electronically signed by: Ricky Rush M.D. 02/05/2018 9:55 PM Dictated Date/Time: 02/05/2018 9:54 PM
[2018-02-05 22:18] LABS: HEMATOCRIT 27.3 % (37-47); HEMOGLOBIN 9.5 g/dL (12.0-16.0); MEAN CELL VOLUME 94.5 fL (80-100); MEAN CORPUSCULAR HEMOGLOBIN 32.9 pg (25-34); MEAN CORPUSCULAR HGB CONC 34.8 g/dl (32-36); RED CELL DISTRIBUTION WIDTH SD 54.9 fL (36.4-46.3); WHITE BLOOD COUNT 3.27 K/uL (4.8-10.8)
[2018-02-05 22:28] LABS: INR 1.2 (0.9-1.1); PTT PATIENT 29.9 SECONDS (21.0-31.0)
[2018-02-05 22:41] LABS: ALBUMIN 3.7 gm/dl (3.4-5.0); ALKALINE PHOSPHATASE 153 U/L (45-117); ALT/SGPT 36 U/L (12-78); AST/SGOT 145 U/L (15-37); BLOOD UREA NITROGEN 6 mg/dl (7-18); CALCIUM 8.8 mg/dl (8.5-10.1); CARBON DIOXIDE 30 mmol/L (21-32); CREATININE 0.82 mg/dl (0.60-1.20); GLUCOSE 95 mg/dl (70-99); POTASSIUM 3.1 mmol/L (3.5-5.1); SODIUM 136 mmol/L (136-145); TOTAL PROTEIN 8.5 gm/dl (6.4-8.2)
[2018-02-05] MEDS ORDERED: POTASSIUM CHLORIDE 10 MEQ TABCR PO STA (22:45)
[2018-02-05] MEDS ORDERED: MAGNESIUM SULFATE 1GM / D5W 1 GM BAG IV STA (22:45)
[2018-02-05 22:49] LABS: BASO % 1.5 %; BASO ABS # 0.05 K/uL (0-0.2); EOS % 0.6 %; EOS ABS # 0.02 K/uL (0-0.5); LYMPH % 37.3 %; LYMPH ABS # 1.22 K/uL (1.2-3.4); MEAN PLATELET VOLUME 11.1 fL (7.4-10.4); MONO % 6.1 %; NEUT % 54.5 %; NEUT ABS # 1.78 K/uL (1.4-6.5); PLATELET COUNT 63 K/uL (130-400)
[2018-02-05 23:08] LABS: LIPASE 276 U/L (73-393)
[2018-02-05] MEDS ORDERED: OPTIRAY 320 IV PRN (23:15)
--- NOTE | 2018-02-06 00:06 | EMERGENCY ROOM VISIT NOTE ---
History First contact with patient: 21:26 Chief Complaint: UNABLE TO VOID Stated Complaint: UNABLE TO URINATE Nursing Triage Summary: unable to void since 1430. Pressure and pain lower abd and back History of Present Illness The patient is a 32 year old female who presents to the Emergency Room with complaints of fatigue, fever, chills, abdominal pain, low back pain, urinary retention for the past few days who has a history of cirrhosis and had a TIPS procedure earlier this year. Patient states she accidentally drank a few days ago. Patient denies drinking today or yesterday. No illegal drugs. Patient appointment on 27 february with her liver specialist in [place] for follow-up. Patient states she feels extremely rundown and is concerned she is back and liver failure again. Patient states she only urinated once today and was quite dark. Patient denies chest pain, dyspnea, cough, congestion, leg pain or swelling, dysuria, headache, neck stiffness, sore throat. Patient is tolerating p.o. fluids and food but has decreased appetite. Review of Systems An 10 system review of systems was completed with positives and pertinent negatives listed in the HPI. Past Medical/Surgical History Medical Problems: (1) Abdominal pain (2) Alcoholism (3) Liver cirrhosis (4) paracentesis (5) Restless leg syndrome Surgical Problems: (1) S/P TIPS (transjugular intrahepatic portosystemic shunt) Family History Diabetes mellitus FHx: cancer FHx: heart disease Hypertension Kidney disease Kidney stones Social History Smoking Status: Unknown if Ever Smoked Alcohol Use: heavy Marital Status: single Housing Status: lives with family Occupation Status: unemployed Current/Historical Medications Scheduled Folic Acid (Folvite), 1 MG PO DAILY Furosemide (Lasix), 20 MG PO DAILY Lactulose (Chronulac), 20 GM PO QID Melatonin (Melatonin), 3 MG PO HS Multivitamin (Multivitamin), 1 TAB PO DAILY Pantoprazole (Protonix), 40 MG PO DAILY Spironolactone (Aldactone), 50 MG PO DAILY Thiamine Hcl (Vitamin B-1), 100 MG PO DAILY Scheduled PRN Saline (Saline Nasal [place]), 2 SPRY RICHARD UD PRN for congestion Physical Exam Vital Signs Date Time Temp Pulse Resp B/P (MAP) Pulse Ox O2 Delivery O2 Flow Rate FiO2 02/05/18 23:23 91 20 143/85 99 Room Air 02/05/18 22:28 84 20 144/88 97 Room Air 02/05/18 21:36 97 Room Air 02/05/18 21:23 36.9 92 22 142/89 97 Room Air Physical Exam VITALS: Vitals are noted on the nurse's note and reviewed by myself. Vital signs stable. GENERAL: White female mildly jaundiced appearing with questional EtOH odor, in no acute distress, nondiaphoretic, well-developed well-nourished. SKIN: The skin was without rashes, erythema, edema, or bruising. There is no tenting of the skin. Capillary reflex less than 2 seconds. HEAD: Normocephalic atraumatic. EARS: External auditory canals clear, tympanic membranes pearly mejia without erythema or effusion bilaterally. EYES: Pupils equal round and reactive to light and accommodation. Conjunctivae with injection, sclerae with icterus. Extraocular movements intact. NOSE: Patent, turbinates without inflammation or discharge. No sinus tenderness. MOUTH: Mucous membranes mildly dry. Pharynx without erythema or exudate. Uvula midline. Airway patent. Tongue does not deviate. NECK: Supple without nuchal rigidity. No lymphadenopathy. No thyromegaly. Cervical spine is nontender. No JVD. HEART: Regular rate and rhythm without murmurs gallops or rubs. LUNGS: Clear to auscultation bilaterally without wheezes, rales or rhonchi. No retractions or accessory muscle use. ABDOMEN: Positive bowel sounds x 4. Normal tympanic percussion. Soft, diffusely tender to palpation without localized pain, without masses or organomegaly. Sauceda sign negative. No guarding or rebound tenderness. Bilateral CVA tenderness MUSCULOSKELETAL: No muscle atrophy, erythema, or edema noted. NEURO: Patient was alert and oriented to person place and time. Normal sensation to light and sharp touch. No focal neurological deficits. Medical Decision & Procedures Laboratory Results 02/05/18 22:00 Red Blood Count 2.89, Mean Corpuscular Volume 94.5, Mean Corpuscular Hemoglobin 32.9, Mean Corpuscular Hemoglobin Concent 34.8, Mean Platelet Volume 11.1, Neutrophils (%) (Auto) 54.5, Lymphocytes (%) (Auto) 37.3, Monocytes (%) (Auto) 6.1, Eosinophils (%) (Auto) 0.6, Basophils (%) (Auto) 1.5, Neutrophils # (Auto) 1.78, Lymphocytes # (Auto) 1.22, Monocytes # (Auto) 0.20, Eosinophils # (Auto) 0.02, Basophils # (Auto) 0.05 02/05/18 22:00 Test 02/05/18 21:22 02/05/18 22:00 02/05/18 22:04 02/05/18 22:06 Urine Color ORANGE Urine Appearance CLEAR (CLEAR) Urine pH 5.5 (4.5-7.5) Urine Specific [place] 1.027 (1.000-1.030) Urine Protein 2+ (NEG) Urine Glucose (UA) NEG (NEG) Urine Ketones TRACE (NEG) Urine Occult Blood 2+ (NEG) Urine Nitrite POS (NEG) Urine Bilirubin 2+ (NEG) Urine Urobilinogen POS (NEG) Urine Leukocyte Esterase SMALL (NEG) Urine WBC (Auto) 1-5 /hpf (0-5) Urine RBC (Auto) 10-30 /hpf (0-4) Urine Hyaline Casts (Auto) 0 /lpf (0-5) Urine Epithelial Cells (Auto) >30 /lpf (0-5) Urine Bacteria (Auto) NEG (NEG) Urine Pathogenic Casts /lpf (0) Urine Opiates Screen NEG (NEG) Urine Methadone, Qualitative NEG (NEG) Urine Barbiturates NEG (NEG) Urine Phencyclidine (PCP) Level NEG (NEG) Ur Amphetamine/Methamphetamine NEG (NEG) MDMA (Ecstasy) Screen NEG (NEG) Urine Benzodiazepines Screen NEG (NEG) Urine Cocaine Metabolite NEG (NEG) Urine Marijuana (THC) NEG (NEG) White Blood Count 3.27 K/uL (4.8-10.8) Red Blood Count 2.89 M/uL (4.2-5.4) Hemoglobin 9.5 g/dL (12.0-16.0) Hematocrit 27.3 % (37-47) Mean Corpuscular Volume 94.5 fL (80-100) Mean Corpuscular Hemoglobin 32.9 pg (25-34) Mean Corpuscular Hemoglobin Concent 34.8 g/dl (32-36) Platelet Count 63 K/uL (130-400) Mean Platelet Volume 11.1 fL (7.4-10.4) Neutrophils (%) (Auto) 54.5 % Lymphocytes (%) (Auto) 37.3 % Monocytes (%) (Auto) 6.1 % Eosinophils (%) (Auto) 0.6 % Basophils (%) (Auto) 1.5 % Neutrophils # (Auto) 1.78 K/uL (1.4-6.5) Lymphocytes # (Auto) 1.22 K/uL (1.2-3.4) Monocytes # (Auto) 0.20 K/uL (0.11-0.59) Eosinophils # (Auto) 0.02 K/uL (0-0.5) Basophils # (Auto) 0.05 K/uL (0-0.2) RDW Standard Deviation 54.9 fL (36.4-46.3) RDW Coefficient of Variation 16.0 % (11.5-14.5) Immature Granulocyte % (Auto) 0.0 % Immature Granulocyte # (Auto) 0.00 K/uL (0.00-0.02) Platelet Estimate DECREASED Tear Drop Cells 1+ Ovalocytes 1+ Schistocytes OCCASIONAL Prothrombin Time 12.7 SECONDS (9.0-12.0) Prothromb Time International Ratio 1.2 (0.9-1.1) Activated Partial Thromboplast Time 29.9 SECONDS (21.0-31.0) Partial Thromboplastin Ratio 1.2 Anion Gap 8.0 mmol/L (3-11) Est Creatinine Clear Calc Drug Dose 75.7 ml/min Estimated GFR () 109.0 Estimated GFR (Non- 94.0 BUN/Creatinine Ratio 7.0 (10-20) Calcium Level 8.8 mg/dl (8.5-10.1) Magnesium Level 1.3 mg/dl (1.8-2.4) Total Bilirubin 5.3 mg/dl (0.2-1) Aspartate Amino Transf (AST/SGOT) 145 U/L (15-37) Alanine Aminotransferase (ALT/SGPT) 36 U/L (12-78) Alkaline Phosphatase 153 U/L (45-117) Troponin I < 0.015 ng/ml (0-0.045) Total Protein 8.5 gm/dl (6.4-8.2) Albumin 3.7 gm/dl (3.4-5.0) Globulin 4.8 gm/dl (2.5-4.0) Albumin/Globulin Ratio 0.8 (0.9-2) Lipase 276 U/L (73-393) Human Chorionic Gonadotropin, Qual NEG (NEG) Bedside Lactic Acid Venous 1.76 mmol/L (0.90-1.70) Ethyl Alcohol mg/dL 163.7 mg/dl (0-3) Medications Administered Medications (Trade) Dose Ordered Sig/Jesús Route Start Time Stop Time Status Last Admin Dose Admin Morphine Sulfate (MoRPHine SULFATE INJ) 4 mg NOW STAT IV 02/05/18 21:46 02/05/18 21:47 DC 02/05/18 21:46 4 MG Ondansetron HCl (Zofran Inj) 4 mg NOW STAT IV 02/05/18 21:46 02/05/18 21:47 DC 02/05/18 21:46 4 MG Sodium Chloride 500 ml @ 999 mls/hr Q31M STAT IV 02/05/18 21:46 02/05/18 22:16 DC 02/05/18 21:46 999 MLS/HR Magnesium Sulfate (Magnesium Sulfate 1gm / D5W) 2 gm NOW STAT IV 02/05/18 22:45 02/05/18 22:46 DC 02/05/18 23:11 2 GM Potassium Chloride (Klor-Con M10) 40 meq NOW STAT PO 02/05/18 22:45 02/05/18 22:46 DC 02/05/18 23:09 40 MEQ ED Course Prior records/ancillary studies reviewed. Triage Nursing notes reviewed. The patient's history was concerning for abdominal pain with known liver cirrhosis status post TIPS. Differential diagnosis: Etiologies such as liver failure, alcohol intoxication, appendicitis, diverticulitis, PUD, biliary pathology, UTI, pancreatitis, obstruction, mesenteric ischemia, aortic pathology, infections, inflammatory bowel disease, renal colic, as well as others were entertained. Physical examination findings: As above. ER treatment provided: IV fluids, morphine, Zofran On reassessment the patient felt better. Diagnostics interpreted by me: ECG: Normal sinus, normal intervals, no acute ST changes, mildly acute T waves, rate of 85. Impression normal sinus rhythm with per mildly hyperacute T waves interpreted by myself appeared to prior EKG. The labs revealed hypokalemia, hypomag, pancytopenia Alcohol 163. Negative UDS Imaging studies: CT ABDOMEN & PELVIS With Contrast: TIPS stent identified. Cirrhotic liver. Prior cholecystectomy. No ascites. Splenomegaly. No obstructive uropathy, appendicitis, colitis or diverticulitis. No free air, free fluid, fluid collection or other acute or inflammatory disease. Radiologist: Lester Avila M.D. Exam and history seem consistent with alcohol intoxication with electrolyte abnormalities and abdominal discomfort. Patient had no acute findings and CT imaging. Patient is a chronic alcoholic. She has had a TIPS procedure. No signs of pancreatitis. She is tolerating fluids. No UTI. Patient was strongly encouraged to quit drinking. She lied about her alcohol intake today. She lied about her alcohol intake last time she came to the ER. Patient was strongly encouraged to follow-up with family care doctor in a day or 2 and to keep her appointment with her liver specialist at the end of the month. She is advised to return to the ER meaty for abdominal pain, fevers, vomiting, worsening signs or symptoms or as needed. By the evaluation outlined above emergent etiologies such as appendicitis, diverticulitis, PUD, biliary pathology, UTI, pancreatitis, obstruction, mesenteric ischemia, aortic pathology, infections, inflammatory bowel disease, renal colic, as well as others were deemed relatively unlikely. Patient continued to request for pain medicines. She states she wanted to stay in the hospital for pain management. I informed her that is not a reason to stay in the hospital. She was strongly encouraged to abstain from alcohol and to follow -up family care this week. The pt informed about the findings as listed above. All questions were answered. Return instructions were outlined and the patient was discharged in stable condition. Referral: The patient was referred back to their primary care physician for follow-up in 2 to 3 days for a recheck of the current condition. Case reviewed with my attending The chart was completed utilizing [employer] Speech voice recognition software. Grammatical errors, random word insertions, pronoun errors, and incomplete sentences are an occassional consequence of this system due to software limitations, ambient noise, and hardware issues. Any formal questions or concerns about the content, text, or information contained within the body of this dictation should be directly addressed to the physician trust manager assistant for clarification. Medical Decision As above Medication Reconcilliation Current Medication List: was personally reviewed by me Blood Pressure Screening Patient's blood pressure: Elevated blood pressure Blood pressure disposition: Elevated BP felt to be situational Impression Primary Impression: Pancytopenia Additional Impressions: Hypokalemia Hypomagnesemia Alcohol abuse Abdominal cramping Departure Information Dispostion Home / Self-Care Condition GOOD Referrals Preet Estes D.O. (PCP) Patient Instructions My [facility] Additional Instructions DO NOT drive, drink alcohol, operate machinery, or perform dangerous activities today. You were given medications in the ER that can affect your ability to safely function or operate a vehicle. I strongly recommend that you seek help for your alcohol abuse. I strongly recommend that you quit drinking alcohol. Rest and drink plenty of fluids as tolerated. Slow sips of water or sports drinks are recommended instead of large amounts all at once. Continue current medications. Once your stomach is settled start with a clear liquid diet (jello, soup broth, etc.) and then advance as tolerated. You should avoid full, heavy meals for about 24 hrs from the time your symptoms resolved. Return to the ER immediately for worsening or persistent abdominal pain, vomiting, fevers, chest pains, difficulty breathing, black or bloody stools, worsening of your condition, or as needed. Follow up with your primary physician in 1-2 days for a recheck of your current condition. Keep your appointment as scheduled this month with your liver specialist in [place]. Problem Qualifiers
[2018-02-06 01:18] VITALS: BP 140/80; PULSE 90; TEMP 36.7; O2SAT 99
[2018-02-06] MEDS ORDERED: ONDA4TAB46 PO (02:48)
--- NOTE | 2018-02-06 07:24 | DIAGNOSTIC IMAGING REPORT ---
ABDOMEN AND PELVIS CT WITH IV CONTRAST CT DOSE: 267.46 mGy.cm HISTORY: Generalized abdominal pain, TIPS, pancreatitisin past TECHNIQUE: Multiaxial CT images of the abdomen and pelvis were performed following the use of intravenous contrast. A dose lowering technique was utilized adhering to the principles of ALARA. COMPARISON STUDY: Abdominal ultrasound 01/09/2018. FINDINGS: The lung bases are clear. No pneumoperitoneum. No pneumatosis. Nodular contour to the liver consistent with cirrhosis. Patent TIPS is again identified. Cholecystectomy. The spleen is enlarged measuring 16 cm in length. The adrenal glands, kidneys, and pancreas enhance normally. No retroperitoneal lymphadenopathy. Bladder is not well-distended but appears unremarkable. The uterus and ovaries are within normal limits. Trace pelvic free fluid. This is likely physiologic. No bowel wall thickening or obstruction. The visualized appendix is unremarkable. IMPRESSION: 1. Cirrhotic liver with splenomegaly. A TIPS is again noted and is patent. 2. The kidneys enhance normally. No hydronephrosis. 3. No definite bowel wall thickening or obstruction. Electronically signed by: Anurag Mcgovern M.D. 02/06/2018 7:23 AM Dictated Date/Time: 02/06/2018 7:16 AM
== END 2018-02-06 01:19 | disposition home or self-care (01) ==
LOC: EDBD 21:14 → C.EDB 21:15
DX: D61.818 Other pancytopenia (principal); E87.6 Hypokalemia; E83.42 Hypomagnesemia; F10.20 Alcohol dependence, uncomplicated; R10.9 Unspecified abdominal pain; R50.9 Fever, unspecified; M54.5 Low back pain; R33.9 Retention of urine, unspecified; Z79.899 Other long term (current) drug therapy

== ENCOUNTER 2018-02-06 02:14 | Emergency (ER) | payer OTHER ==
[~2018-02-06] VITALS: Ht 149.9 cm; Wt 57.7 kg
[2018-02-06 02:20] VITALS: BP 137/81; PULSE 86; TEMP 36.6; O2SAT 98; Ht 149.9 cm; Wt 57.7 kg
[2018-02-06] MEDS ORDERED: ONDANSETRON HOME PACK 4MG OD TAB PO ONE (02:45)
[2018-02-06] MEDS ORDERED: ONDANSETRON 4MG OD TAB PO ONE (02:45)
[2018-02-06] MEDS ORDERED: ONDA4TAB46 PO (02:48)
--- NOTE | 2018-02-06 02:49 | EMERGENCY ROOM VISIT NOTE ---
History First contact with patient: 02:23 Chief Complaint: NAUSEA Stated Complaint: NAUSEA History of Present Illness The patient is a 32 year old female who presents to the Emergency Room with complaints of ongoing nausea and abdominal discomfort who was just discharged from the ER by myself. Patient did not have a ride home and was requesting help with getting a ride home. Patient states her aunt cannot pick her up till sometime after 7 AM. Patient was discharged to the waiting room with blankets and then checked back in as she stated she still had nausea. Patient was offered Zofran before checking back and and declined. Patient denies any new symptoms since being discharged less than an hour ago. Patient had a CAT scan blood work EKG testing done with no acute changes noted. Patient was intoxicated. Patient is still denying drinking alcohol even though she was confronted about this. Patient denies chest pain, dyspnea, fevers, vomiting, diarrhea. Patient states she does not know to do so she checked back in. Review of Systems An 10 system review of systems was completed with positives and pertinent negatives listed in the HPI. Past Medical/Surgical History Medical Problems: (1) Abdominal pain (2) Alcoholism (3) Liver cirrhosis (4) paracentesis (5) Restless leg syndrome Surgical Problems: (1) S/P TIPS (transjugular intrahepatic portosystemic shunt) Family History Diabetes mellitus FHx: cancer FHx: heart disease Hypertension Kidney disease Kidney stones Social History Smoking Status: Never Smoker Alcohol Use: heavy Marital Status: single Housing Status: lives with family Occupation Status: unemployed Current/Historical Medications Scheduled Folic Acid (Folvite), 1 MG PO DAILY Furosemide (Lasix), 20 MG PO DAILY Lactulose (Chronulac), 20 GM PO QID Melatonin (Melatonin), 3 MG PO HS Multivitamin (Multivitamin), 1 TAB PO DAILY Pantoprazole (Protonix), 40 MG PO DAILY Spironolactone (Aldactone), 50 MG PO DAILY Thiamine Hcl (Vitamin B-1), 100 MG PO DAILY Scheduled PRN Ondansetron Hcl (Zofran), 4 MG PO DIRECTED PRN for Nausea Saline (Saline Nasal [place]), 2 SPRY RICHARD UD PRN for congestion Physical Exam Vital Signs Date Time Temp Pulse Resp B/P (MAP) Pulse Ox O2 Delivery O2 Flow Rate FiO2 02/06/18 02:20 36.6 86 18 137/81 98 Room Air Physical Exam VITALS: Vitals are noted on the nurse's note and reviewed by myself. Vital signs stable. GENERAL: White female, in no acute distress, nondiaphoretic, well-developed well -nourished. SKIN: Capillary reflex less than 2 seconds. HEENT: Normocephalic. PERRLA. EOMI. Nares patent. Mucous membranes moist. Neck is supple without nuchal rigidity. HEART: Regular rate and rhythm without murmurs gallops or rubs. LUNGS: Clear to auscultation bilaterally without wheezes, rales or rhonchi. No retractions or accessory muscle use. ABDOMEN: Positive bowel sounds x 4. Normal tympanic percussion. Soft, nontender, without masses or organomegaly. Sauceda sign negative. No guarding or rebound tenderness. No CVA tenderness MUSCULOSKELETAL: No gross musculoskeletal defects. No pedal edema. No calf tenderness. NEURO: Patient was alert and oriented to person place and time. Normal sensation to light and sharp touch. No focal neurological deficits. Medical Decision & Procedures Medications Administered Medications (Trade) Dose Ordered Sig/Jesús Route Start Time Stop Time Status Last Admin Dose Admin Ondansetron HCl (Zofran Odt) 4 mg ONE ONCE PO 02/06/18 02:45 02/06/18 02:46 DC 02/06/18 02:41 4 MG Ondansetron HCl (ZOFRAN ODT 4MG Home Pack) 1 homepack UD ONCE PO 02/06/18 02:45 02/06/18 02:46 DC 02/06/18 02:41 1 HOMEPACK ED Course Prior records/ancillary studies reviewed. Triage Nursing notes reviewed. The patient's history was concerning for abdominal pain. Differential diagnosis: Etiologies such as drug-seeking behavior, attention seeking behavior, liver failure, liver complication, appendicitis, diverticulitis, PUD, biliary pathology, UTI, pancreatitis, obstruction, mesenteric ischemia, aortic pathology , infections, inflammatory bowel disease, renal colic, as well as others were entertained. Physical examination findings: As above. ER treatment provided: Zofran On reassessment the patient felt better. Diagnostics interpreted by me: Labs, EKG and CT were reviewed from an hour ago. Exam and history seem consistent with ongoing alcoholism, cirrhosis, nausea and abdominal discomfort. Patient does not have acute abdomen on exam. She had a negative CT from an hour ago. Labs are baseline for her. She was not confused. Patient rechecked back and as she states she did not have a ride home. Patient was asking for admission because no one will come get her. I informed her that is not a reason to be admitted. I the nurse [place], present for this. Patient was informed to abstain from alcohol and to seek treatment for her alcoholism. She is given information on this. She is advised to stay well-hydrated and to take medications as directed. She is advised to follow-up as scheduled with her liver specialist in the family care this week. She is advised to return to the ER meaty for abdominal pain, fevers , vomiting, worsening signs or symptoms or as needed. Patient has not vomited at all since she has been in the ER.By the evaluation outlined above emergent etiologies such as appendicitis, diverticulitis, PUD, biliary pathology, UTI, pancreatitis, obstruction, mesenteric ischemia, aortic pathology, infections, inflammatory bowel disease, renal colic, as well as others were deemed relatively unlikely. The pt informed about the findings as listed above. All questions were answered and pleased with the treatment. Return instructions were outlined and the patient was discharged in stable condition. Outpatient prescription management: Martha Referral: The patient was referred back to their primary care physician for follow-up in 2 to 3 days for a recheck of the current condition. Patient is advised to follow-up with her liver specialist as scheduled. Case reviewed with my attending The chart was completed utilizing [employer] Speech voice recognition software. Grammatical errors, random word insertions, pronoun errors, and incomplete sentences are an occassional consequence of this system due to software limitations, ambient noise, and hardware issues. Any formal questions or concerns about the content, text, or information contained within the body of this dictation should be directly addressed to the physician pharmacy affairs assistant for clarification. Medical Decision As above Medication Reconcilliation Current Medication List: was personally reviewed by me Blood Pressure Screening Patient's blood pressure: Normal blood pressure Impression Primary Impression: Alcoholism Additional Impressions: Nausea Abdominal cramping Departure Information Dispostion Home / Self-Care Condition GOOD Referrals Preet Estes D.O. (PCP) Patient Instructions My [facility] Additional Instructions DO NOT drive, drink alcohol, operate machinery, or perform dangerous activities today. You were given medications in the ER that can affect your ability to safely function or operate a vehicle. I strongly recommend that you seek help for your alcoholism and attend rehab. Zofran(odansetron) tablets 4mg: Take one and allow it to dissolve in your mouth every four to six hours as needed for nausea or vomiting. Rest and drink plenty of fluids as tolerated. Slow sips of water or sports drinks are recommended instead of large amounts all at once. Continue current medications. Once your stomach is settled start with a clear liquid diet (jello, soup broth, etc.) and then advance as tolerated. You should avoid full, heavy meals for about 24 hrs from the time your symptoms resolved. Return to the ER for persistent vomiting, fevers, abdominal pain, chest pains, difficulty breathing, black or bloody stools, worsening of your condition, or as needed. Follow up with your primary physician in 2-3 days for a recheck of your current condition. Problem Qualifiers
== END 2018-02-06 02:50 | disposition home or self-care (01) ==
LOC: C.EDB 02:15 → C.EDA 02:50
DX: F10.20 Alcohol dependence, uncomplicated (principal); R11.0 Nausea; R10.9 Unspecified abdominal pain; Z79.899 Other long term (current) drug therapy